=== PATIENT | male | born 1970 | race African-American/Black ===

== ENCOUNTER 2023-01-13 19:56 | Emergency (ER) | payer OTHER ==
[~2023-01-13] VITALS: Ht 180.3 cm; Wt 91.0 kg
[2023-01-13 20:04] VITALS: BP 150/95
== END 2023-01-14 02:51 | disposition left against medical advice (07) ==
LOC: ER 20:11
DX: Z53.21 Procedure and treatment not carried out due to patient leaving prior to being seen by health care provider (principal); M54.50 Low back pain, unspecified
CPT/HCPCS: 99281